=== PATIENT | male | born 1950 | race Caucasian/White ===

== ENCOUNTER 2017-01-25 07:35 | Day surgery (SDC) | payer BC ==
--- NOTE | 2016-12-29 09:44 | HISTORY AND PHYSICAL E ---
History and Physical NAME: LAUREN SAWANT : 1950 AGE: 66Y ADMITTED: 01/04/2017 ROOM: CHIEF COMPLAINT: Colon screening. HISTORY OF PRESENT ILLNESS: The patient presented for colon screening. MEDICATIONS: The patient's medications are: 1. Synthroid. 2. Calcium. 3. Fish oil. FAMILY HISTORY: Paternal uncle known to have colon cancer. His mom is alive, and she has diverticulosis. His father is alive; no GI problem. REVIEWING OF SYSTEMS: CARDIAC: Negative. RESPIRATORY: Negative. ENDOCRINE: Negative. GASTROINTESTINAL: Colon screening. HEMATOLOGY/ONCOLOGY: Anemia. PHYSICAL EXAMINATION: VITAL SIGNS: Blood pressure 150/80, pulse 80, respirations 20, temperature is 98. HEAD, EYES, EARS, NOSE, THROAT: Normal. NECK: Supple. LUNGS: Clear. ABDOMEN: Soft. NEUROLOGIC: Negative. CONCLUSION: Colon screening. PLAN: Colonoscopy. Patient admitted for colon screening. DICTATING PHYSICIAN: LUPE SAMAYOA M.D. [id number] PHY#: [id number] ID: [id number] JOB#: [id number] ACCT: [id number] cc:LUPE SAMAYOA M.D. >
--- NOTE | 2017-01-18 13:45 | HISTORY AND PHYSICAL E ---
History and Physical NAME: LAUREN SAWANT : 1950 AGE: 66Y ADMITTED: 01/25/2017 ROOM: CHIEF COMPLAINT: Colon screening. HISTORY: The patient presented for colon screening. MEDICATION: 1. Synthroid. 2. Calcium. ALLERGIES: No known allergies. FAMILY HISTORY: The patient's uncle known to have colon cancer. His mom is alive and she has diverticulosis. His father is alive. No GI problems. REVIEW OF SYSTEMS: CARDIAC: Negative. ENDOCRINE: Negative. RESPIRATORY: Negative. HEMATOLOGY/ONCOLOGY: Anemia. PHYSICAL EXAMINATION: VITAL SIGNS: Blood pressure 150/80, pulse 80, respirations are 20, temp is 98. HEAD, EYES, EARS, NOSE, THROAT: Normal. ABDOMEN: Soft. NEUROLOGIC: Exam negative. DIAGNOSTIC DATA: The patient's hemoglobin is 12, hematocrit 38. CONCLUSION: Colon screening. PLAN: Colonoscopy. DICTATING PHYSICIAN: LUPE SAMAYOA M.D. [id number] PHY#: [id number] ID: [id number] JOB#: [id number] ACCT: [id number] cc:NING AL M.D., MAHMOUD M.D. >
[2017-01-25] MEDS ORDERED: ONDANSETRON HCL INJ/PF 4 MG/2 ML SDV ONE (07:36)
[2017-01-25] MEDS ORDERED: NALOXONE HCL INJ/PF 0.4 MG/1 ML SDV ONE (07:37)
[2017-01-25] MEDS ORDERED: GLYCOPYRROLATE INJ 0.4 MG/2 ML VIAL ONE (07:37)
[2017-01-25] MEDS ORDERED: EPINEPHRINE INJ 1 MG/10 ML DISP.SYRIN ONE (07:38)
[2017-01-25] MEDS ORDERED: FLUMAZENIL INJ 0.5 MG/5 ML VIAL ONE (07:38)
[2017-01-25] MEDS: MIDAZOLAM 2 MG/2 ML INJ ONE ×2 (08:08→08:16)
[2017-01-25] MEDS: FENTANYL CITRATE INJ/PF 100 MCG/2 ML AMPUL ONE ×5 (08:10→08:30)
[2017-01-25 09:28] VITALS: BP 124/79
[2017-01-25] MEDS ORDERED: GLUCAGON,HUMAN RECOMB 1 MG INJ ONE (10:09)
--- NOTE | 2017-01-25 11:57 | DISCHARGE SUMMARY E ---
Discharge Summary NAME: LAUREN SAWANT : 1950 AGE: 66Y ADMITTED: 01/25/2017 DISCHARGED: 01/25/2017 HISTORY: The patient is a 66-year-old male who underwent colon screening today showing sigmoid diverticulosis, mild, and external hemorrhoids. DISCHARGE PLAN: 1. Soft diet. 2. Consider follow-up colonoscopy in 5 years. FINAL DIAGNOSES: 1. Sigmoid diverticulosis, mild. 2. External hemorrhoids, mild. DICTATING PHYSICIAN: LUPE SAMAYOA M.D. [id number] [id number] PHY#: [id number] ID: [id number] JOB#: [id number] ACCT: [id number] cc:NING AL M.D., MAHMOUD M.D. >
--- NOTE | 2017-01-25 12:02 | OPERATIVE REPORT E ---
Operative Report NAME: LAUREN SAWANT : 1950 AGE: 66Y DATE OF SURGERY: 01/25/2017 ROOM: PREOPERATIVE DIAGNOSIS: Colon screening. POSTOPERATIVE DIAGNOSIS: Sigmoid descending colon diverticulosis, external hemorrhoid. PROCEDURE: Colonoscopy. SURGEON: LUPE SAMAYOA M.D. TISSUE REMOVED OR ALTERED: None. ANESTHESIA: Versed 3, fentanyl 100. RECOMMENDATION: Followup colonoscopy 5 years. DESCRIPTION: Rectal exam: External hemorrhoids, sigmoid diverticulosis. Descending colon diverticulosis. Transverse colon normal. Ascending colon normal. Cecum normal. Scope withdrawn from cecum, ascending, transverse, descending, sigmoid all the way to the rectum. CONCLUSION: Diverticulosis sigmoid colon, external hemorrhoids. Consider followup colonoscopy in 5 years. DICTATING PHYSICIAN: LUPE SAAMYOA M.D. [id number] PH#: [id number] ID: [id number] JOB#: [id number] ACCT: [id number] cc:NING AL M.D., MAHMOUD M.D. >
== END 2017-01-25 09:30 | disposition home or self-care (01) ==
LOC: END 07:35
PROVIDERS: ATTEND Specialist
PROC: 0DJD8ZZ Inspection of Lower Intestinal Tract, Via Natural or Artificial Opening Endoscopic (ICD-10-PCS; principal; 2017-01-25 08:00)
DX: Z12.11 Encounter for screening for malignant neoplasm of colon (principal); K57.30 Diverticulosis of large intestine without perforation or abscess without bleeding; D64.9 Anemia, unspecified; K44.9 Diaphragmatic hernia without obstruction or gangrene; Z79.899 Other long term (current) drug therapy
CPT/HCPCS: 45378; J2250; J3010; J1610; J2405; J0171; J2310; J3490